=== PATIENT | male | born 1950 | race Caucasian/White ===

== ENCOUNTER 2017-01-25 10:45 | Emergency (ER) | payer BC, OTHER ==
[~2017-01-25] VITALS: Ht 167.6 cm; Wt 76.8 kg
[~2017-01-25 10:45] MED LIST: ALL180 PO; ALPR-411 PO; ASPEC325 PO; ATOR10TA82 PO; CLOP1TAB15 PO; GLCSUNK PO; METO25TA56 PO; MULT-506 PO; PRN10125 PO
[2017-01-25 10:48] VITALS: TEMP 36.8; Ht 167.6 cm; Wt 76.8 kg
[2017-01-25] MEDS ORDERED: SODIUM CHLORIDE 0.9% 1000ML 1,000 ML IV STA (10:57)
[2017-01-25] MEDS ORDERED: ONDANSETRON INJ 2 MG/ML 2 ML VIAL IV STA (10:57)
[2017-01-25] MEDS: MoRPHine SULFATE 4 MG/ML 1 ML CARP\\VIAL IV PRN ×2 (11:18→11:55)
[2017-01-25] MEDS ORDERED: ASPI81TA28 PO (11:20)
[2017-01-25] MEDS ORDERED: GLCS500 PO (11:20)
[2017-01-25] MEDS ORDERED: OMEG10007 PO (11:20)
[2017-01-25] MEDS ORDERED: LISI-461 PO (11:20)
[2017-01-25 11:26] LABS: BASO % 0.2 %; BASO ABS # 0.02 K/uL (0-0.2); COMPLETE YES; EOS % 2.1 %; HEMATOCRIT 45.5 % (42-52); IG% 0.2 %; LYMPH % 27.3 %; LYMPH ABS # 2.59 K/uL (1.2-3.4); MEAN CORPUSCULAR HGB CONC 34.1 g/dl (32-36); MEAN PLATELET VOLUME 10.6 fL (7.4-10.4); MONO % 15.4 %; NEUT % 54.8 %; PLATELET COUNT 197 K/uL (130-400); RED BLOOD COUNT 4.69 M/uL (4.7-6.1)
[2017-01-25 11:28] LABS: URINE APPEARANCE CLEAR (CLEAR); URINE BILIRUBIN NEG (NEG); URINE COLOR DK YELLOW; URINE NITRITE NEG (NEG); URINE PH 5.5 (4.5-7.5); URINE SPECIFIC GRAVITY 1.024 (1.000-1.030); UROBILINOGEN NEG (NEG)
[2017-01-25 11:31] LABS: MANUAL MICROSCOPIC REQUIRED? NO; REVIEW REQ? NO
[2017-01-25 11:58] LABS: BLOOD UREA NITROGEN 20 mg/dl (7-18); CREATININE 1.03 mg/dl (0.60-1.40); GLUCOSE 120 mg/dl (70-99)
--- NOTE | 2017-01-25 11:58 | DIAGNOSTIC IMAGING REPORT ---
ABD/PELVIS NO IV OR ORAL CONT HISTORY: 66 years-old Male right flank pain acute right-sided flank pain with history of nephrolithiasis COMPARISON: Renal ultrasound 07/09/2011 TECHNIQUE: Multiple axial CT images of the abdomen and pelvis were obtained without contrast A dose lowering technique was used consistent with the principals of SAVANAH. FINDINGS: Lung bases are generally clear with only minimal dependent bibasilar atelectasis. There is no pneumoperitoneum. Imaged inferior cardiac chambers are mildly enlarged with coronary arterial disease. Evaluation of the solid abdominal organs is limited without the use of contrast. Within the limitations of the study, the liver, spleen, and adrenal glands are within normal limits. There is suggestion of minimal stranding within the region of the pancreatic head. Layering gallstones seen within the gallbladder lumen without CT evidence of acute cholecystitis. 3 mm nonobstructing calculus of the inferior pole left kidney. Exophytic low attenuating lesion of the anterior aspect interpolar right kidney, 3.2 x 3.3 cm suggests cyst. 4 mm echogenic focus of the interpolar right kidney may reflect parenchymal calcification or complex cyst as seen on image 205 series 3. Nonobstructing renal calculi of the inferior pole right kidney are seen measuring up to 4 mm. There is mild right-sided hydroureteronephrosis secondary to a 3 x 2 x 3 mm calculus of the distal right ureter which is present approximately 2 cm proximal to the ureterovesicular junction. Urinary bladder is partially collapsed. The left ureter is unremarkable. Postsurgical changes from prior prostatectomy. Postsurgical changes of the upper scrotum also noted suggesting prior vasectomy. Mild atherosclerotic plaquing of the abdominal aorta. No bulky adenopathy. Mild distention of the stomach suggests recent meal. No bowel obstruction or focal bowel wall thickening. The appendix appears normal. Soft tissues are unremarkable. Bones appear intact. Moderate multilevel facet arthrosis. Sclerotic foci of the pelvis suggests bone islands. IMPRESSION: 1. Mild right-sided hydroureteronephrosis secondary to a 3 x 2 x 3 mm calculus of the distal right ureter approximately 2.0 cm proximal to the ureterovesicular junction. 2. Additional bilateral nonobstructing renal calculi as above. 3. Suggested mild mesenteric fat stranding adjacent to the pancreatic head. Correlate with lipase level. 4. Normal appendix. The above report was generated using voice recognition software. It may contain grammatical, syntax or spelling errors. Electronically signed by: Demarco Petit M.D. 01/25/2017 11:56 AM Dictated Date/Time: 01/25/2017 11:49 AM
[2017-01-25 11:59] LABS: ALKALINE PHOSPHATASE 71 U/L (45-117); ALT/SGPT 34 U/L (12-78); BUN/CREATININE RATIO 18.9 (10-20); CALCIUM 8.9 mg/dl (8.5-10.1); CARBON DIOXIDE 28 mmol/L (21-32); CHLORIDE 109 mmol/L (98-107); SODIUM 141 mmol/L (136-145)
[2017-01-25] MEDS ORDERED: KETOROLAC TROMETHAMINE 30 MG/ML VIAL IV STA (12:13)
[2017-01-25] MEDS ORDERED: TAMSULOSIN HCL 0.4 MG CAP PO ONE (12:15)
[2017-01-25] MEDS ORDERED: OXYC1TAB3 PO ×2 (13:22→13:23)
[2017-01-25] MEDS ORDERED: TAMS0.4C38 PO (13:22)
[2017-01-25 13:35] VITALS: BP 132/76; PULSE 79; O2SAT 95
--- NOTE | 2017-01-25 17:19 | EMERGENCY ROOM VISIT NOTE ---
History Report prepared by Ofe: Luigi Stafford Under the Supervision of: Dr. Nemesio Huizar D.O. First contact with patient: 10:52 Chief Complaint: BACK PAIN Stated Complaint: PAIN IN LOWER RIGHT BACK History of Present Illness The patient is a 66 year old male who presents to the Emergency Room with complaints of constant right lower back pain beginning shortly prior to arrival. He states that his pain began suddenly while sitting and drinking coffee this morning. He states that the pain was very intense for the first 30 minutes, but has improved a bit. The patient vomited on the way to the ED. He describes his pain as "sharp". He has a history of kidney stones and states that his symptoms feels somewhat similar. The patient has a history of a cardiac stent placement. Source of History: patient Onset: shortly prior to arrival Position: back (right lower) Quality: sharp Timing: constant Review of Systems See HPI for pertinent positives & negatives. A total of 10 systems reviewed and were otherwise negative. Past Medical & Surgical Medical Problems: (1) Kidney stone (2) No Known Active Medical Problems (3) Prostate cancer Surgical Problems: (1) H/O heart artery stent (2) H/O prostatectomy Family History No pertinent family history stated. Social History Smoking Status: Never Smoker Drug Use: none Marital Status: Occupation Status: employed Current/Historical Medications Scheduled Alprazolam (Xanax), 0.5 MG PO Q6HR PRN Aspirin (Aspirin Ec), 81 MG PO DAILY Atorvastatin (Lipitor), 80 MG PO DAILY Fexofenadine Hcl (Rufina *), 180 MG PO DAILY Fish Oil ([place]-3), 1 CAP PO TID Glucosamine Sulfate (Glucosamine Sulfate), 500 MG PO BID Lisinopril (Zestril), 10 MG PO DAILY Metoprolol Tartrate (Lopressor) (Lopressor), 12.5 MG PO BID Multivitamin (Multivitamin), 1 TAB PO DAILY Tamsulosin Hcl (Flomax), 0.4 MG PO DAILY Scheduled PRN Oxycodone Immediate Rel Tab (Roxicodone Ir), 1-2 TAB PO Q4H PRN for Severe Pain Allergies Coded Allergies: Thimerosal (Unverified Allergy, Mild, ITCH, 01/25/17) Physical Exam Vital Signs Date Time Temp Pulse Resp B/P (MAP) Pulse Ox O2 Delivery O2 Flow Rate FiO2 01/25/17 13:35 79 15 132/76 95 01/25/17 12:40 70 18 146/82 97 Room Air 01/25/17 12:02 77 01/25/17 11:47 77 20 162/90 97 Room Air 01/25/17 10:48 36.8 74 20 169/106 97 Room Air Physical Exam GENERAL: Patient is awake, alert, and in no acute distress. Patient is resting comfortably and showing no signs of anxiety EYES: The conjunctivae are clear. The pupils are round and reactive. EARS, NOSE, MOUTH AND THROAT: The nose is without any evidence of any deformity. Mucous membranes are moist tongue is midline NECK: The neck is nontender and supple. RESPIRATORY: Normal respiratory effort is noted there is no evidence of wheezing rhonchi or rales CARDIOVASCULAR: Regular rate and rhythm noted there no murmurs rubs or gallops normal S1 normal S2 GASTROINTESTINAL: Mildly distended but soft. RUQ tenderness to palpation but no guarding or rigidity. BACK: No midline tenderness. Right CVA tenderness to percussion. ROM intact. MUSCULOSKELETAL/EXTREMITIES: There is no evidence of gross deformity full range of motion is noted in the hips and shoulders SKIN: There is no obvious evidence of any rash. There are no petechiae, pallor or cyanosis noted. NEUROLOGIC: Patient is awake alert and oriented x3 strength is symmetric patellar reflexes are 2+ bilaterally Medical Decision & Procedures ER Provider Diagnostic Interpretation: CT results as stated below per my review and radiologist interpretation. ABD/PELVIS NO IV OR ORAL CONT FINDINGS: Lung bases are generally clear with only minimal dependent bibasilar atelectasis. There is no pneumoperitoneum. Imaged inferior cardiac chambers are mildly enlarged with coronary arterial disease. Evaluation of the solid abdominal organs is limited without the use of contrast. Within the limitations of the study, the liver, spleen, and adrenal glands are within normal limits. There is suggestion of minimal stranding within the region of the pancreatic head. Layering gallstones seen within the gallbladder lumen without CT evidence of acute cholecystitis. 3 mm nonobstructing calculus of the inferior pole left kidney. Exophytic low attenuating lesion of the anterior aspect interpolar right kidney, 3.2 x 3.3 cm suggests cyst. 4 mm echogenic focus of the interpolar right kidney may reflect parenchymal calcification or complex cyst as seen on image 205 series 3. Nonobstructing renal calculi of the inferior pole right kidney are seen measuring up to 4 mm. There is mild right-sided hydroureteronephrosis secondary to a 3 x 2 x 3 mm calculus of the distal right ureter which is present approximately 2 cm proximal to the ureterovesicular junction. Urinary bladder is partially collapsed. The left ureter is unremarkable. Postsurgical changes from prior prostatectomy. Postsurgical changes of the upper scrotum also noted suggesting prior vasectomy. Mild atherosclerotic plaquing of the abdominal aorta. No bulky adenopathy. Mild distention of the stomach suggests recent meal. No bowel obstruction or focal bowel wall thickening. The appendix appears normal. Soft tissues are unremarkable. Bones appear intact. Moderate multilevel facet arthrosis. Sclerotic foci of the pelvis suggests bone islands. IMPRESSION: 1. Mild right-sided hydroureteronephrosis secondary to a 3 x 2 x 3 mm calculus of the distal right ureter approximately 2.0 cm proximal to the ureterovesicular junction. 2. Additional bilateral nonobstructing renal calculi as above. 3. Suggested mild mesenteric fat stranding adjacent to the pancreatic head. Correlate with lipase level. 4. Normal appendix. The above report was generated using voice recognition software. It may contain grammatical, syntax or spelling errors. Electronically signed by: Demarco Petit M.D. 01/25/2017 11:56 AM Laboratory Results 01/25/17 11:09 Red Blood Count 4.69, Mean Corpuscular Volume 97.0, Mean Corpuscular Hemoglobin 33.0, Mean Corpuscular Hemoglobin Concent 34.1, Mean Platelet Volume 10.6, Neutrophils (%) (Auto) 54.8, Lymphocytes (%) (Auto) 27.3, Monocytes (%) (Auto) 15.4, Eosinophils (%) (Auto) 2.1, Basophils (%) (Auto) 0.2, Neutrophils # (Auto ) 5.21, Lymphocytes # (Auto) 2.59, Monocytes # (Auto) 1.46, Eosinophils # (Auto ) 0.20, Basophils # (Auto) 0.02 01/25/17 11:09 Test 01/25/17 11:09 White Blood Count 9.50 K/uL (4.8-10.8) Red Blood Count 4.69 M/uL (4.7-6.1) Hemoglobin 15.5 g/dL (14.0-18.0) Hematocrit 45.5 % (42-52) Mean Corpuscular Volume 97.0 fL (80-100) Mean Corpuscular Hemoglobin 33.0 pg (25-34) Mean Corpuscular Hemoglobin Concent 34.1 g/dl (32-36) Platelet Count 197 K/uL (130-400) Mean Platelet Volume 10.6 fL (7.4-10.4) Neutrophils (%) (Auto) 54.8 % Lymphocytes (%) (Auto) 27.3 % Monocytes (%) (Auto) 15.4 % Eosinophils (%) (Auto) 2.1 % Basophils (%) (Auto) 0.2 % Neutrophils # (Auto) 5.21 K/uL (1.4-6.5) Lymphocytes # (Auto) 2.59 K/uL (1.2-3.4) Monocytes # (Auto) 1.46 K/uL (0.11-0.59) Eosinophils # (Auto) 0.20 K/uL (0-0.5) Basophils # (Auto) 0.02 K/uL (0-0.2) RDW Standard Deviation 50.1 fL (36.4-46.3) RDW Coefficient of Variation 14.1 % (11.5-14.5) Immature Granulocyte % (Auto) 0.2 % Immature Granulocyte # (Auto) 0.02 K/uL (0.00-0.02) Urine Color DK YELLOW Urine Appearance CLEAR (CLEAR) Urine pH 5.5 (4.5-7.5) Urine Specific Robert Lee 1.024 (1.000-1.030) Urine Protein NEG (NEG) Urine Glucose (UA) NEG (NEG) Urine Ketones NEG (NEG) Urine Occult Blood NEG (NEG) Urine Nitrite NEG (NEG) Urine Bilirubin NEG (NEG) Urine Urobilinogen NEG (NEG) Urine Leukocyte Esterase NEG (NEG) Anion Gap 4.0 mmol/L (3-11) Est Creatinine Clear Calc Drug Dose 69.8 ml/min Estimated GFR () 87.9 Estimated GFR (Non- 75.9 BUN/Creatinine Ratio 18.9 (10-20) Calcium Level 8.9 mg/dl (8.5-10.1) Total Bilirubin 0.5 mg/dl (0.2-1) Direct Bilirubin mg/dl (0-0.2) Aspartate Amino Transf (AST/SGOT) U/L (15-37) Alanine Aminotransferase (ALT/SGPT) 34 U/L (12-78) Alkaline Phosphatase 71 U/L (45-117) Total Protein 7.3 gm/dl (6.4-8.2) Albumin 3.4 gm/dl (3.4-5.0) Lipase 170 U/L (73-393) Laboratory results per my review. Medications Administered Medications (Trade) Dose Ordered Sig/Jo Route Start Time Stop Time Status Last Admin Dose Admin Sodium Chloride 1,000 ml @ 999 mls/hr Q1H1M STAT IV 01/25/17 10:57 01/25/17 11:57 DC 01/25/17 11:17 999 MLS/HR Ondansetron HCl (Zofran Inj) 4 mg NOW STAT IV 01/25/17 10:57 01/25/17 10:59 DC 01/25/17 11:17 4 MG Morphine Sulfate (MoRPHine SULFATE INJ) 4 mg Q15M PRN IV 01/25/17 11:00 01/25/17 13:48 DC 01/25/17 11:55 4 MG Tamsulosin HCl (Flomax Cap) 0.4 mg NOW ONCE PO 01/25/17 12:15 01/25/17 12:16 DC 01/25/17 12:19 0.4 MG Ketorolac Tromethamine (Toradol Inj) 30 mg NOW STAT IV 01/25/17 12:13 01/25/17 12:14 DC 01/25/17 12:19 30 MG ED Course 1055: The patient was evaluated in room C2. A complete history and physical examination were performed. 1057: Ordered Zofran Inj 4 mg IV, NSS 1,000 ml @ 999 mls/hr IV, Morphine Sulfate 4 mg IV. 1100: Ordered Morphine Sulfate 4 mg IV. 1213: Ordered Toradol Inj 30 mg IV. 1215: Ordered Flomax Cap 0.4 mg PO. 1320: Upon reevaluation, the patient is resting comfortably. I discussed the results and treatment plan with him. He verbalized agreement of the treatment plan. The patient was discharged home. Medical Decision Differential diagnosis: Etiologies such as musculoskeletal, disc herniation, fracture, aortic disease, metastatic disease, cord compression, discitis, infection, renal colic, gastrointestinal, acute exacerbation of chronic back pain, sciatica, cauda equina, as well as others were entertained. Nursing notes reviewed. The patient is a 66-year-old male who presented to the emergency department for an evaluation of acute right flank pain. The patient has a history of kidney stones in the past. The patient was found have a ureteral calculus. He was treated with IV fluids IV pain medicine and IV antiemetics. He was also given Flomax. On final reevaluation he was pain-free. He was encouraged to rest and avoid any strenuous activity. He was also encouraged to continue all medications as prescribed. He was also encouraged to follow-up with his family doctor for reevaluation but return to emergency department immediately if symptoms change worsen or the need arises. I discussed the patient's laboratory and radiographic studies with him. Medication Reconcilliation Current Medication List: was personally reviewed by me Blood Pressure Screening Patient's blood pressure: Elevated blood pressure Blood pressure disposition: Referred to PCP Impression Primary Impression: Kidney stone Scribe Attestation The scribe's documentation has been prepared under my direction and personally reviewed by me in its entirety. I confirm that the note above accurately reflects all work, treatment, procedures, and medical decision making performed by me. Departure Information Dispostion Home / Self-Care Prescriptions Oxycodone Immediate Rel Tab (ROXICODONE IR) 5 Mg Tab 1-2 TAB PO Q4H Y for Severe Pain, #24 TAB Prov: Nemesio Huizar, DO 01/25/17 Tamsulosin Hcl (FLOMAX) 0.4 Mg Cap 0.4 MG PO DAILY, #10 CAP Prov: Nemesio Huizar, DO 01/25/17 Referrals No Doctor, Assigned (PCP) Forms HOME CARE DOCUMENTATION FORM, IMPORTANT VISIT INFORMATION Patient Instructions Kidney Stones, My [facility] Additional Instructions Continue all medications as prescribed. Continue using Motrin and Tylenol as directed for pain. Call your family to schedule a follow-up appointment.
== END 2017-01-25 13:36 | disposition home or self-care (01) ==
LOC: C.EDB 10:49 → C.EDC 13:36
DX: N13.2 Hydronephrosis with renal and ureteral calculous obstruction (principal); N20.0 Calculus of kidney; Z87.442 Personal history of urinary calculi; Z98.61 Coronary angioplasty status; Z85.46 Personal history of malignant neoplasm of prostate; Z79.82 Long term (current) use of aspirin; Z79.899 Other long term (current) drug therapy; Z88.8 Allergy status to other drugs, medicaments and biological substances